=== PATIENT | female | born 1990 | race Caucasian/White ===

== ENCOUNTER 2019-06-24 19:21 | Observation (INO) | payer OTHER, SELFPAY ==
[2019-06-24] VITALS (7 sets, daily range): BP systolic 91–116; BP diastolic 54–67; PULSE 58–70; RESP 16–18; TEMP 36.6–36.8; O2SAT 97–99; BMI 21.9
--- NOTE | 2019-06-24 19:36 | ED_ITS ---
HPI - Abdominal Pain General Chief Complaint: Abdominal Pain Stated Complaint: states abd pain Time Seen by Provider: 06/24/19 19:36 Source: patient Mode of arrival: Ambulatory Limitations: no limitations History of Present Illness HPI narrative: The patient presents with intermittent RLQ pain for approximately 3 days. The pain is intermittent, described as sharp and stabbing when occurring. With this she has no nausea, vomiting, or diarrhea. She has no dysuria or hematuria. She has an IUD in place, over the past 3 years. She has no vaginal symptoms. She denies fever. She does have chills. She still eats and drinks, but her appetite is decreased. She is experiencing mid back pain. She has no history of pyelonephritis. She denies headache, sore throat or URI symptoms. She has no cough or dyspnea. She has no known exposure to others with COVID-19. Related Data Home Medications Medication Instructions Recorded Confirmed No Known Home Medications 06/25/19 06/25/19 Allergies Allergy/AdvReac Type Severity Reaction Status Date / Time No Known Drug Allergies Allergy Verified 06/24/19 19:51 Review of Systems Review of Systems ROS Unobtainable: All systems reviewed & are unremarkable except as noted in HPI and below Constitutional Constitutional: Reports chills, Denies fever(s), Denies headache(s), Denies lethargy and Denies weakness Eyes Eyes: Denies change in vision ENT Ears, Nose, Mouth, and Throat: Denies dysphagia, Denies dizziness, Denies headache(s) and Denies sore throat Cardiovascular Cardiovascular: Denies chest pain, Denies palpitations and Denies dyspnea Respiratory Respiratory: Denies cough and Denies dyspnea Gastrointestinal Gastrointestinal: Reports as per HPI and Denies dysphagia Genitourinary Comments: No vaginal complaints Musculoskeletal Comments: Back pain is noted in HPI. Integumentary/Breasts Skin/Breast: Denies erythema and Denies rash Neurologic Neurologic: Denies dizziness, Denies headache(s) and Denies weakness Endocrine Endocrine: Denies palpitations Patient History Social History household members: spouse and children Smoking Status: Never smoker alcohol intake: current alcohol intake frequency: other (Light alcohol use) Substance Use Type: does not use Exam Initial Vital Signs Initial Vital Signs: Vital Signs Temperature 97.9 F 06/24/19 19:22 Pulse Rate 70 06/24/19 19:22 Respiratory Rate 18 06/24/19 19:22 Blood Pressure 105/56 L 06/24/19 19:22 Pulse Oximetry 97 06/24/19 19:22 Const General: cooperative and well developed Nutritional Appearance: well nourished [facility] Head: normocephalic and atraumatic Mouth: oral mucosae normal Throat: posterior oropharynx normal Eyes General: appearance normal, both eyes and all related structures Conjunctivae: conjunctivae normal Pupils: PERRL EOM: EOM intact bilaterally Resp Effort & Inspection: normal respiratory effort and able to speak in complete sentences Auscultation: clear to auscultation bilaterally, no rales, no rhonchi and no wheezes Cardio Rate: regular rate Rhythm: regular rhythm Heart Sounds: S1 normal, S2 normal, no click, no gallops, no murmurs and no rubs Pulses: normal peripheral pulses GI Inspection: non-distended Palpation: soft and no hepatosplenomegaly Auscultation: normal bowel sounds Other: Right lower quadrant tenderness with guarding but and rebound. Equivocal Rovsing's. Negative heel tap. Back/Spine/Pelvis Back: No CVA tenderness Skin General: no rashes or lesions noted Neuro General: alert, oriented x3 and no focal motor deficits Speech: speech normal Extrem General: full ROM, no clubbing, cyanosis or edema, no pedal edema and no calf tenderness Psych Appearance: well kempt Mental Status: mental status grossly normal Attitude: cooperative Thought Content: normal Course Course Course Narrative: Clinical findings, labs and radiology findings were discussed with surgery, Dr. Jha. I started on a 1st dose of Zosyn. She is admitted to Dr. Jha for ongoing antibiotic treatment. She will be revaluated for potential surgery in the morning. Orders Ordered: ED Orders 06/24/19 17:48 Urine Culture Stat Urine Microscopic Stat 06/24/19 19:50 Complete Blood Count AUTO DIFF Stat Comprehensive Metabolic Panel Stat Lipase Stat 06/24/19 20:02 US pelvic complete Stat 06/24/19 21:47 CT abdomen pelvis w con Stat Lactated Ringer's (Lactated Ringers) 1,000 mls @ 200 mls/hr IV BOLUS ONE Stop: 06/25/19 02:53 Last Infusion: 06/24/19 23:40 Dose: 200 mls/hr Documented by: Admin: 06/24/19 22:09 Dose: 200 mls/hr Documented by: MORENITA Piperacillin/Tazobactam/Dextrose (Zosyn) 3.375 gm in 50 mls @ 100 mls/hr IV Q6H MARSHAL Last Admin: 06/25/19 01:41 Dose: Not Given Documented by: HBUSH Lactated Ringer's (Lactated Ringers) 1,000 mls @ 150 mls/hr IV CONT MARSHAL Morphine Sulfate (Morphine) 2 mg IV Q4HR PRN PRN Reason: Pain, Moderate (4-6) Discontinued Medications Sodium Chloride (Normal Saline 0.9%) 1,000 mls @ 1,000 mls/hr IV BOLUS ONE Stop: 06/24/19 20:45 Last Infusion: 06/24/19 21:18 Dose: 0 mls/hr Documented by: Admin: 06/24/19 20:14 Dose: 1,000 mls/hr Documented by: MORENITA Piperacillin/Tazobactam/Dextrose (Zosyn) 3.375 gm in 50 mls @ 100 mls/hr IV NOW ONE Stop: 06/24/19 23:18 Last Infusion: 06/24/19 23:31 Dose: 0 mls/hr Documented by: Admin: 06/24/19 22:58 Dose: 100 mls/hr Documented by: MORENITA Ketorolac Tromethamine (Toradol) 30 mg IV NOW ONE Stop: 06/24/19 20:03 Last Admin: 06/24/19 20:14 Dose: 30 mg Documented by: MORENITA Vital Signs Vital signs: Vital Signs - 8 hr 06/24/19 19:22 06/24/19 21:00 06/24/19 21:30 Temperature 97.9 F 98.2 F Pulse Rate 70 65 60 Respiratory Rate 18 18 18 Blood Pressure 105/56 L Blood Pressure [Right Arm] 116/56 L 110/65 Pulse Oximetry 97 98 98 06/24/19 22:47 Temperature Pulse Rate 58 L Respiratory Rate 16 Blood Pressure Blood Pressure [Right Arm] 91/54 L Pulse Oximetry 98 MDM - Abdominal Pain Lab Data Result diagrams: 06/24/19 19:50 06/24/19 19:50 Labs: Lab Results 06/24/19 06/24/19 06/24/19 Range/Units 17:48 19:50 19:50 WBC 16.7 H (4.5-11.0) X10^3/uL RBC 4.33 (4.0-5.2) X10^6/uL Hgb 13.0 (12.0-16.0) g/dL Hct 39.0 (36-46) % MCV 90.0 (80-100) fL MCH 30.0 (26-34) PG MCHC 33.3 (30-36) % RDW 13.0 (11.6-14.8) % Plt Count 222 (150-400) X10^3/uL Neut % (Auto) 79.1 H (50-75) % Lymph % (Auto) 12.2 L (25-40) % [place] % (Auto) 7.6 (3-14) % Eos % (Auto) 0.8 L (2-4) % Baso % (Auto) 0.3 (0-2) % Neut # (Auto) 22445 H (4995-0667) /uL Lymph # (Auto) 2000 (5252-8266) /uL [place] # (Auto) 1300 H (0-900) /uL Eos # (Auto) 100 (0-450) /uL Baso # (Auto) 100 (0-100) /uL Sodium 138 (137-145) mmol/L Potassium 3.4 (3.4-5.1) mmol/L Chloride 104 (98-107) mmol/L Carbon Dioxide 28 (22-32) mmol/L BUN 14 (7-17) mg/dL Creatinine 0.67 (0.52-1.04) mg/dL Estimated GFR > 60.0 (>60) mL/min BUN/Creatinine Ratio 20.9 (6-22) Glucose 143 H (70-100) mg/dL Calcium 9.2 (8.4-10.2) mg/dL Total Bilirubin 0.5 (0.2-1.3) mg/dL AST 30 (14-36) IU/L ALT 18 (<35) IU/L Alkaline Phosphatase 60 (38-126) U/L Total Protein 7.6 (6.3-8.2) g/dL Albumin 4.4 (3.5-5.0) g/dL Globulin 3.2 (1.7-4.1) g/dL Albumin/Globulin Ratio 1.4 (1.0-2.8) Lipase 76 (23-300) U/L Urine RBC 5-10/hpf H (0-5/HPF) Urine WBC 5-10/hpf H (0-5/HPF) Ur Squamous Epith Cells 1-5 /hpf (0-5/HPF) Ur Transition Epith Cell 1-5/hpf (0-5/HPF) Amorphous Sediment 1+ Urine Bacteria Many (>30) H (None) Ur Culture Indicated? Specimen cultured Point of care testing: Point of Care Testing Test Results Negative Urine Dip Bedside Urine Glucose Negative Bedside Urine Bilirubin - Negative Bedside Urine Ketone +/- 5 Urine Specific Platinum 1.020 Bedside Urine Occult Blood +/- Bedside Urine pH 6.5 Bedside Urine Protein +/- 15 Bedside Urine Urobilinogen +/- 1mg Bedside Urine Nitrite - Negative Bedside Urine Leukocytes +/- 15 Esterase Imaging Data Ultrasound-pelvis: Radiologist's Impression: 4 Diagnostics DATE TYPE STATUS AUTHOR Hx 06/24/19 21:47 06/24/19 20:02 Shailesh Richardson Morgan E 28, F0 1990 ADM BELINDA, AC 209 -1 170.18cm 63.503kg BMI: 21.9kg/m? Search Chart No Data to Display ONSET 06/24/19 23:57 Ricardo Ernandez 28 F 1990 [place] [address] Ultrasound Report Signed Patient: Ricardo Ernandez EMR#: [id number] : 1990Acct:[id number] Age/Sex: te of Service: 06/24/19 Loc: ED Accession Number: [id number] Procedure: US pelvic complete Ordering Provider: Luis Enrique Aponte MD PROCEDURE: US PELVIC COMPLETE INDICATIONS: RIGHT LOWER QUADRANT PAIN; APPENCICITIS VS TORSION TECHNIQUE: Real-time scanning was performed of the pelvic organs, with image documentation. Additional endovaginal scanning was necessary due to incomplete visualization of the adnexal and endometrial structures by transabdominal scanning. COMPARISON: None. FINDINGS: Transabdominal scanning: Limited scanning through the kidneys shows no hydronephrosis. No pathologic free abdominal or pelvic fluid. Endovaginal scanning: Uterus: Uterus is normal in size at 8.3 x 3.9 x 6.1 cm. The endometrium is quite thin. An IUD is in place. Ovaries: Right ovary measures 3.6 x 2.1 x 1.7 cm. Left ovary measures 3.4 x 2.1 x 2.1 cm. Ovaries are normal in appearance. There is normal vascularity involving both ovaries. There is a 10 cm noncompressible tubular structure in the right lower quadrant, which measures 1.3 cm in transverse dimension. There is a probable appendicolith. There is significant pain on examination of the structure. IMPRESSION: Findings are highly suspicious for acute appendicitis. No evidence of ovarian torsion. Comment: Preliminary findings were reported by the net web developer to the referring provider at the time of study completion. Dictated by: Shailesh Richardson M.D. on 06/24/2019 at 21:21 Approved by: Shailesh Richardson M.D. on 06/24/2019 at 21:30 Abdomen/pelvis CT:: Radiologist's Impression: Findings consistent with acute appendicitis. Discharge Plan Departure Patient Disposition: Admitted as Observation Clinical Impression: Acute appendicitis Qualifiers: Acute appendicitis type: with localized peritonitis Appendicitis gangrene presence: unspecified whether gangrene present Appendicitis perforation presence: without perforation Appendicitis abscess presence: without abscess Qualified Code(s): K35.30 - Acute appendicitis with localized peritonitis, without perforation or gangrene Discharge Date/Time: 06/24/19 23:41 Admit Date/Time: 06/24/19 22:55 Admit Provider: Dylan Jha
--- NOTE | 2019-06-24 20:02 | DI.US.S_ITS ---
PROCEDURE: US PELVIC COMPLETE INDICATIONS: RIGHT LOWER QUADRANT PAIN; APPENCICITIS VS TORSION TECHNIQUE: Real-time scanning was performed of the pelvic organs, with image documentation. Additional endovaginal scanning was necessary due to incomplete visualization of the adnexal and endometrial structures by transabdominal scanning. COMPARISON: None. FINDINGS: Transabdominal scanning: Limited scanning through the kidneys shows no hydronephrosis. No pathologic free abdominal or pelvic fluid. Endovaginal scanning: Uterus: Uterus is normal in size at 8.3 x 3.9 x 6.1 cm. The endometrium is quite thin. An IUD is in place. Ovaries: Right ovary measures 3.6 x 2.1 x 1.7 cm. Left ovary measures 3.4 x 2.1 x 2.1 cm. Ovaries are normal in appearance. There is normal vascularity involving both ovaries. There is a 10 cm noncompressible tubular structure in the right lower quadrant, which measures 1.3 cm in transverse dimension. There is a probable appendicolith. There is significant pain on examination of the structure. IMPRESSION: Findings are highly suspicious for acute appendicitis. No evidence of ovarian torsion. Comment: Preliminary findings were reported by the men's furnishings salesperson to the referring provider at the time of study completion. Dictated by: Shailesh Richardson M.D. on 06/24/2019 at 21:21 Approved by: Shailesh Richardson M.D. on 06/24/2019 at 21:30
[2019-06-24 20:06] LABS: Add Manual Diff / Slide Review NO; Basophils Absolute Auto 100 /uL (0-100); Basophils Percent Auto 0.3 % (0-2); Eosinophils Absolute Auto 100 /uL (0-450); Eosinophils Percent Auto 0.8 % (2-4); Lymphocytes Absolute Auto 2000 /uL (1100-4500); Lymphocytes Percent Auto 12.2 % (25-40); Mean Corpuscular HGB Conc 33.3 % (30-36); Monocytes Absolute Auto 1300 /uL (0-900); Monocytes Percent Auto 7.6 % (3-14); Neutrophils Absolute Auto 13200 /uL (1500-7000); Neutrophils Percent Auto 79.1 % (50-75); Platelet Count 222 X10^3/uL (150-400); Red Blood Cell Count 4.33 X10^6/uL (4.0-5.2); White Blood Cell Count 16.7 X10^3/uL (4.5-11.0)
[2019-06-24] MEDS: KETOROLAC 60 MG/2 ML VIAL 30 MG IV (20:14)
[2019-06-24] MEDS: SODIUM CHLORIDE 0.9% 1,000 ML 1000 ML IV (20:14)
[2019-06-24 20:17] LABS: Amorphous Sediment Urine 1+; Bacteria Urine Many (>30); Culture Indicated Urine Specimen Cultured; RBC Urine 5-10/HPF (0-5/HPF); Squamous Epithelial Cell Urine 1-5 /HPF (0-5/HPF); Transitional Epi Cells Urine 1-5/HPF (0-5/HPF); WBC Urine 5-10/HPF (0-5/HPF)
[2019-06-24 20:22] LABS: Alanine Aminotransferase 18 IU/L (<35); Albumin 4.4 g/dL (3.5-5.0); Albumin Globulin Ratio 1.4 (1.0-2.8); Alkaline Phosphatase 60 U/L (38-126); Aspartate Aminotransferase 30 IU/L (14-36); BUN Creatinine Ratio 20.9 (6-22); Bilirubin Total 0.5 mg/dL (0.2-1.3); Blood Urea Nitrogen 14 mg/dL (7-17); Calcium 9.2 mg/dL (8.4-10.2); Carbon Dioxide 28 mmol/L (22-32); Chloride 104 mmol/L (98-107); Estimated Glomerular Filt Rate > 60.0 mL/min (>60); Globulin 3.2 g/dL (1.7-4.1); Glucose 143 mg/dL (70-100); HEMOLYSIS < 15 (0-50); Lipase 76 U/L (23-300); Potassium 3.4 mmol/L (3.4-5.1); Sodium 138 mmol/L (137-145); Total Protein 7.6 g/dL (6.3-8.2)
--- NOTE | 2019-06-24 21:47 | DI.CT.S_ITS ---
PROCEDURE: CT ABDOMEN PELVIS W CON INDICATIONS: RLQ pain. Suspect appendicitis from recent ultrasound. TECHNIQUE: After the administration of intravenous contrast, 5 mm thick sections acquired from the diaphragm to the symphysis. 5 mm coronal and sagittal reformats were acquired. For radiation dose reduction, the following was used: automated exposure control, adjustment of mA and/or kV according to patient size. COMPARISON: None. FINDINGS: Image quality: Excellent. ABDOMEN: Lung bases: Bibasilar dependent atelectasis are seen posteriorly. Heart size is normal. Solid organs: Liver is normal in size and enhancement. Gallbladder is within normal limits. Biliary system is non dilated. Pancreas enhances normally. Spleen is normal in size and enhancement. No adrenal nodules. Kidneys demonstrate normal size and enhancement, without hydronephrosis. Peritoneum and bowel: There is fecal stasis in the colon. Significantly enlarged appendix with periappendiceal fat stranding and appendiceal wall thickening is seen. Small to moderate amount of free fluid in lower abdomen and pelvis is seen. No discrete drainable abscess collection is identified. No peritoneal free air. Nodes and vessels: No retroperitoneal or mesenteric adenopathy by size criteria. Aorta and inferior vena cava are normal in size. Miscellaneous: No ventral hernias. PELVIS: Genitourinary: Bladder wall thickness is normal. Miscellaneous: No inguinal hernias or adenopathy. Intrauterine device is noted in place. Possible collapsing left ovarian follicle is seen. Bones: No suspicious bony lesions. No vertebral body compression fractures. IMPRESSION: 1. Findings consistent with acute appendicitis. No discrete drainable abscess collection is seen. Small to moderate amount of free fluid is seen in the lower abdomen and pelvis. No peritoneal free air. Mild constipation. 2. Intrauterine device in place. Possible collapsing left ovarian follicle. Dictated by: Steve Reagan M.D. on 06/25/2019 at 8:25 Approved by: Steve Reagan M.D. on 06/25/2019 at 8:28
[2019-06-24] MEDS: LACTATED RINGERS 1,000 ML 200 ML IV (22:09)
[2019-06-24] MEDS: PIPERACILLIN-TAZO 3.375 GM/50 ML FROZ.PIGGY IV (22:58)
[2019-06-25] VITALS (20 sets, daily range): BP systolic 85–105; BP diastolic 48–61; PULSE 49–91; RESP 11–23; TEMP 34.7–36.8; O2SAT 89–100
--- NOTE | 2019-06-25 | PATH_ITS ---
[facility] Accession Number: [id number] . 01 Material submitted: . appendix - APPENDIX . 01 Clinical history: . STATES ABD PAIN . 02 Diagnosis: Appendix, Appendectomy: Acute appendicitis. No evidence of neoplasm. [facility] 06/27/2019 1209 Local . 02 Electronically signed: . Gaudencio Malin MD, PhD, Pathologist NPI- [id number] . 01 Gross description: . Received in formalin, labeled appendix, is an intact appendix (length-5.8 cm, diameter-0.8 cm) with guerrero-pink smooth shiny serosa and an open resection margin. The lumen contains clear colorless fluid. The wall is up to 0.3 cm thick. No nodules, masses or lesions are identified. The resection margin is inked blue. Serially sectioned and entirely submitted in cassettes A1-A2 with the resection margin en face in A1, and the tip is bivalved and entirely submitted in cassettes A3-A4. ([id number]) /MRV 06/26/2019 1146 Local . 02 Pathologist provided ICD-10: K35.80 . 02 CPT . 768819 Performed at: 01 [facility] [address], [place], [place] [id number] MD Poncho Mckenzie MD Phone: [phone] Performed at: 02 [facility] [address] [place], [place] [id number] MD Kay Newton MD Phone: [phone]
--- NOTE | 2019-06-25 00:14 | PC.ADMIT ---
[id number] [facility] Admission Note: The patient,Ricardo Ernandez,28 y/o, was given written information regarding hospital policies, unit procedures and contact persons. Patient's smoking status: Never smoker. Vital Signs - 8 hr 06/24/19 19:22 06/24/19 21:00 06/24/19 21:30 Temperature 97.9 F 98.2 F Pulse Rate 70 65 60 Respiratory Rate 18 18 18 Blood Pressure 105/56 L Blood Pressure [Right Arm] 116/56 L 110/65 Pulse Oximetry 97 98 98 06/24/19 22:47 06/24/19 23:00 06/24/19 23:30 Temperature Pulse Rate 58 L 62 59 L Respiratory Rate 16 16 16 Blood Pressure Blood Pressure [Right Arm] 91/54 L 97/61 99/58 L Pulse Oximetry 98 98 98 06/24/19 23:57 Temperature 98.2 F Pulse Rate 63 Respiratory Rate 16 Blood Pressure 99/67 Blood Pressure [Right Arm] Pulse Oximetry 99 Patient arrived via stretcher. Able to ambulate to bed. A/O X 3 in NAD. Independent in room. IVF infusing LR @ 150 mL/hour per orders. IV Zosyn dose completed in ED - next dose in AM. NPO maintained - last reported meal at 1730 06/24/19. Denies current pain at rest. Denies N/V. Oriented to room, plan of care and call light.
[2019-06-25] MEDS: LACTATED RINGERS 1,000 ML 150 ML IV (03:00)
[2019-06-25] MEDS: MORPHINE 2 MG/ML INJ IV (03:01)
[2019-06-25] MEDS: PIPERACILLIN-TAZO 3.375 GM/50 ML FROZ.PIGGY IV (06:13)
--- NOTE | 2019-06-25 07:08 | PM.HP.1 ---
History of Present Illness History of Present Illness Date Patient Seen: 06/25/19 Time Patient Seen: 07:00 Date of Onset of Symptoms: 06/22/19 Chief complaint: states abd pain Narrative: The patient is a 28-year-old woman who developed pain 3 or 4 days ago in her abdomen. She thought she had eaten something that might have been tainted. The kick pain came and went but when she tried exercise and next day became more severe and settled in the right lower quadrant. It intensified yesterday and she came into the emergency room. The pain was very sharp stabbing pain yesterday. She has had morphine through the night her pain has improved with that but is still present. She has been anorexic but has not vomited. She has been little nauseated. She is otherwise healthy. No black or bloody bowel movements or diarrhea. Patient History Family & Social History Social History: household members spouse,children Prior Living Arrangements House Safety & Behavioral: Feels Safe in Current Yes Environment Been Physically Hurt or No Threatened By a Person Suicidal Ideation Description None Suicide Plan Description No Plan Tobacco & Substance use: Smoking Status Never smoker alcohol intake current alcohol intake frequency a few times a month Substance Use Type does not use Meds Home Medications and Allergies Home Medications Medication Instructions Recorded Confirmed Type No Known Home Medications 06/25/19 06/25/19 History Allergies Allergy/AdvReac Type Severity Reaction Status Date / Time No Known Drug Allergies Allergy Verified 06/24/19 19:51 Review of Systems Review of Systems Narrative: Patient denies any visual difficulties pain arise double vision. No problems with tooth aches or swallowing. No sore throat or runny nose. No cough cold or asthma. No heart problems murmurs chest pain. No black or bloody bowel movements. No problems with kidney stones or blood in her urine. No seizures or blackouts. No problems with unusual bruising or bleeding. She has an IUD in place. Not . She had some problem absorbing folate when she was and takes supplement. Exam Vital Signs (past 8 hours): - 06/24/19 23:30 06/24/19 23:57 Temperature 98.2 F Pulse Rate 59 L 63 Respiratory Rate 16 16 Blood Pressure 99/67 Blood Pressure [Right Arm] 99/58 L Pulse Oximetry 98 99 Oxygen Delivery Method Room Air Oxygen Flow Rate 0 Narrative Exam Narrative: Thin Cooperative in no apparent distress. Eyes are nonicteric. Pupils equal round reactive to light. Ears without lesion. Nasal septum is midline. Small opening into the nose. Oral mucosa is dry no open lesions pink. Teeth are intact. There are no nodes neck supraclavicular areas. Lungs are clear to auscultation without rales or rhonchi. Equal percussion heart regular rate and rhythm without murmur gallop no bruit in the neck abdomen is flat soft. There is no tenderness in the left abdomen but in the right lower quadrant there is a sense of fullness and guarding. It is localized. Her extremities without cyanosis clubbing or edema. No obvious bony deformities noted. She is alert and oriented x3. Speech rate and content are appropriate affect is appropriate. Objective Labs Result Diagrams: 06/24/19 19:50 06/24/19 19:50 Labs: Laboratory Results - last 24 hr 06/24/19 06/24/19 06/24/19 17:48 19:50 19:50 WBC 16.7 H RBC 4.33 Hgb 13.0 Hct 39.0 MCV 90.0 MCH 30.0 MCHC 33.3 RDW 13.0 Plt Count 222 Neut % (Auto) 79.1 H Lymph % (Auto) 12.2 L [place] % (Auto) 7.6 Eos % (Auto) 0.8 L Baso % (Auto) 0.3 Neut # (Auto) 18814 H Lymph # (Auto) 2000 [place] # (Auto) 1300 H Eos # (Auto) 100 Baso # (Auto) 100 Sodium 138 Potassium 3.4 Chloride 104 Carbon Dioxide 28 BUN 14 Creatinine 0.67 Estimated GFR > 60.0 BUN/Creatinine Ratio 20.9 Glucose 143 H Calcium 9.2 Total Bilirubin 0.5 AST 30 ALT 18 Alkaline Phosphatase 60 Total Protein 7.6 Albumin 4.4 Globulin 3.2 Albumin/Globulin Ratio 1.4 Lipase 76 Urine RBC 5-10/hpf H Urine WBC 5-10/hpf H Ur Squamous Epith Cells 1-5 /hpf Ur Transition Epith Cell 1-5/hpf Amorphous Sediment 1+ Urine Bacteria Many (>30) H Ur Culture Indicated? Specimen cultured Assessment & Plan Assessment & Plan narrative: Patient is a healthy young woman with findings on physical exam laboratory and CT consistent with acute appendicitis. I discussed operation with a sandy. Will begin laparoscopically and expect to be able to complete it that way. I did mention the possibility of an open procedure. Risks of bleeding abscess formation and injury to internal organs in hernia were all discussed. Restrictions after the procedure discussed. All questions were answered. Quality VTE Deep Vein Thrombosis/Pulmonary Embolism Present on Admission: No
--- NOTE | 2019-06-25 07:18 | PM.PREOP ---
Pre-operative Note Interval Note History & Physical reviewed/Exam performed by Physician: Yes Changes to H&P: No
--- NOTE | 2019-06-25 07:52 | PC.NURSE ---
Day Shift- Pt gave Toni cullen mix, also given to OR team at bedside. . Pt left to OR via bed at 0738 in no distress. PIV, S/L'd at that time.
[2019-06-25] MEDS: CEFOTETAN 2 GM/50 ML PIGGYBACK IV (08:15)
--- NOTE | 2019-06-25 08:45 | SUR.OPER ---
Supine on padded OR bed, head on pillow, arm padded and tucked at side, legs uncrossed, safety belt at thigh, tape over blanket over lower legs .
[2019-06-25] MEDS: BUPIVACAINE 0.5% (PF) VIAL 30 ML INJ (08:54)
[2019-06-25] MEDS: LACTATED RINGERS 1,000 ML 40 ML IV ×2 (08:59→09:14)
--- NOTE | 2019-06-25 11:12 | PM.OP.1 ---
Operative Date/Time/Diagnoses Date of procedure: 06/25/19 Time of procedure: 10:49 Pre-op diagnosis: Acute appendicitis Post-op diagnosis: same Procedure & Clinicians Procedure: Laparoscopic appendectomy Same procedure as scheduled: Yes Indications: Right lower quadrant pain tenderness elevated white blood cell count and a CT consistent with acute appendicitis Surgeon: Dylan Jha Click Yes if Unassisted: Yes Anesthesia Type: General Operative Notes Findings: Acute appendicitis without perforation. Most of the inflammation was actually at the base. Closure Type: primary Specimen(s): other (Appendix) Prosthetic devices, grafts, tissues, transplants, or devices: None Estimated Blood Loss (mL): 10 Blood products transfused: none Procedure in detail: The patient was placed supine on the operating room table and underwent general endotracheal anesthesia. She was prepped and draped in the usual fashion. A Cardona was placed prior. Local anesthetic was infiltrated in the small incision made beneath the umbilicus. It was carried down under direct vision in the peritoneal cavity. The fascia was opened and 2 stay sutures of 0 Vicryl were placed in the fascia. A 12 mm port was inserted and 2 additional ports were placed. One was placed in the suprapubic region and 1 in the left lower quadrant. The cecum was readily identified as a soft pliable structure identified the appendix which was adherent to the cecum and trailing off to the lateral abdominal wall. The terminal ileum was also noted. The attachments of the appendix to the lateral abdominal wall were divided sharply in the appendix mobilized medially. The mesoappendix was divided. The artery was identified and carefully cauterized. Once cauterized there was no bleeding from it. It was quite difficult to dissect at the base of the appendix due to the amount of inflammation located in that region. It was very difficult to separate it at the base out from the cecum due to the inflammation. This was a slow tedious process. Ultimately I felt I had dissected down to the region near the base of the appendix and slid able to 0 0 PDS loop down over it and cinched it down. Unfortunately, because of the inflammation, it appeared to slice through everything but the mucosa. I was not satisfied that this would allow for secure closure. The appendix distal was divided with cautery placed in a bag and removed without difficulty through the umbilical port. I read then returned back to the base of the appendix did further dissection and decided to fire a stapler across the base of the appendix to secure it. A blue load 45 length stapler was obtained and closed across the base of the appendix and fired. It appeared to create a secure closure of the entire appendiceal opening. The right lower quadrant and pelvis were irrigated and suctioned free of fluid. There was a small amount of fluid around the liver which was also suctioned free. None of this fluid was purulent. Air was carefully evacuated through the filter any time there was a need to remove something from the abdomen to prevent air from the abdomen is skating unfiltered. The ports ultimately were removed. Stay sutures at the umbilicus were tied after placing a 2 0 PDS between them. The wounds were all irrigated and suctioned free of fluid. The wounds were all closed with interrupted 4 0 Vicryl subcuticular stitches and steristrips. Patient was awakened extubated and ultimately taken to the recovery room in good condition. Complications: none Post-operative Condition: stable Disposition: PACU
[2019-06-25] MEDS: HYDROMORPHONE 2 MG INJ IV (11:19)
--- NOTE | 2019-06-25 11:53 | SUR.PHASEI ---
Report called to Letha
--- NOTE | 2019-06-25 12:16 | PC.NURSE ---
Day Shift- Report rec'd from [facility] OPENER at 1150. Pt arrived to unit at 1210. Report given to VANESSA Villanueva to assume care.
--- NOTE | 2019-06-25 12:19 | SUR.PHASEI ---
Patient transferred to the floor with pulse ox. Report given to VANESSA Villanueva. VS stable. O2 sat 86% on RA while transferring. Deep breaths encouraged. Sats increased to low 90s on RA. 1l NC reapplied in the room. Abd dressings clean, dry, intact. IV saline locked in left AC. Call light within reach.
--- NOTE | 2019-06-25 13:38 | CM.DANOTE ---
Patient is a 28 year old female who was admitted on 06/24/19 for Abd Pain. Pt has [employer] For insurance and her PCP is not listed. EMR was reviewed. Per Surgeon, pt with acute appendicitis and to have surgical intervention today. Pt was off the floor most of the morning in surgery. Per RN, pt independent in room and tolerated procedure well but currently on 1L oxygen and will d/c home once she can be transitioned to room air. No needs at this time. Plan: SW to follow closely for pt d/c home with spouse and family this evening or tomorrow pending pt's ability to transition to room air. No SW needs at this time, please refer if indicated. MIRTHA Lizama Discharge Planning/Care Management CM Discharge Assessment Start: 06/25/19 13:37 Freq: Status: Active Protocol: Document 06/25/19 13:37 BF (Rec: 06/25/19 13:38 BF [id number]) Discharge Planning Assessment Assigned Angledozer Operator VANCE Vasquez DPOA/Assigned Designee Name informally spouse Toni Contact Information [phone] Advance Directives? No Advance Directives on File No History Provided By Patient,Medical Record Has Patient been admitted in last 30 No days? Prior Living Arrangements House Household Members spouse,children Type of transporation used prior to Drives own vehicle admit Independent with ADL's Yes Is patient alert and oriented? Yes Caregiver for Another Yes: children Comment Likely home with family Barriers to Discharge No Discharge Plan Home Transportation Arrangement Spouse can likely transport at d/c. Referrals Initiated None needed Review Status In Process Please Provide Date Initial DC 06/25/19 Assessment Was Performed Next Review Type Continued Stay Review
[2019-06-25] MEDS: LACTATED RINGERS 1,000 ML 125 ML IV (14:26)
[2019-06-25] MEDS: GABAPENTIN 300 MG CAPSULE PO (14:26)
--- NOTE | 2019-06-25 14:34 | PC.NURSE ---
Pt arrived from PACU @1215, alert oriented, Slightly hypotensive, 1L Spo2 93% IS teaching provided. 3 large bandaids to lap sites low pelvic.
[2019-06-25] MEDS: KETOROLAC 30 MG/ML VIAL IV (17:16)
[2019-06-25] MEDS: OXYCODONE/ACETAMINOPHEN 5/325 TABLET 2 TAB PO (20:25)
--- NOTE | 2019-06-26 13:35 | PM.DS.1 ---
History of Present Illness History of Present Illness Chief complaint: states abd pain Narrative: The patient is a 28-year-old woman who developed pain 3 or 4 days ago in her abdomen. She thought she had eaten something that might have been tainted. The kick pain came and went but when she tried exercise and next day became more severe and settled in the right lower quadrant. It intensified yesterday and she came into the emergency room. The pain was very sharp stabbing pain yesterday. She has had morphine through the night her pain has improved with that but is still present. She has been anorexic but has not vomited. She has been little nauseated. She is otherwise healthy. No black or bloody bowel movements or diarrhea. Discharge Providers Provider Date of admission: 06/24/19 22:55 Discharge Date: 06/25/19 Consults: 06/25/19 12:30 Consult to Discharge Planning Routine Comment: Discharge provider: Dylan Jha MD Summary Hospital Course Discharge Diagnosis: Acute appendicitis without perforation or peritonitis Hospital Course: Patient underwent a laparoscopic appendectomy. Postoperatively she was discharged once tolerating liquids to follow up in the office Status at Discharge Cognitive/behavioral status at discharge: oriented Functional status at discharge: independent ambulation Overall status at discharge: patient is progressing back to baseline Exam Vital Signs (past 8 hours): Oxygen Delivery Method Nasal Cannula Oxygen Flow Rate 0 Objective Labs Result Diagrams: 06/24/19 19:50 06/24/19 19:50 Discharge Plan Discharge Plan Patient Disposition: Home Discharge orders & Medications Prescriptions: New oxycodone-acetaminophen [Percocet] 5-325 mg tablet See Rx Instructions .ROUTE .COMPLEX PRN (Reason: pain) Qty: 14 RF: 0 Follow up/Referrals: Dylan Jha MD [Physician] - 07/02/19 11:00 am (If you need to reach a doctor please call our office. If we are not open listen to the entire message and you will be connected with the page dinkey motor operator at the end of the message. They will call the doctor on-call) Diet/Activity/Treatments Diet: Diet as Tolerated Activity: Do not lift over 10 lb or strain for the next [address] into her pain-free off medication. You may walk. Skin/Wound/Dressing Care Report to your healthcare provider any signs of infection, such as:: chills, fever, night sweats, increased pain, unusual drainage and unusual redness Dressing: Removed Band-Aids in 2 days and shower. Leave the tape under the Band-Aids fall off on its own. Visit Report/Discharge Packet Instructions: DI for an Appendectomy, DI for Laparoscopy, [facility]: Wound Care Discharge Data Attending Provider: Dylan Jha Admit Date/Time: 06/24/19 22:55 Discharges patient from system. Discharge Date/Time: 06/25/19 20:47 Quality VTE Deep Vein Thrombosis/Pulmonary Embolism Present on Admission: No
== END 2019-06-25 20:47 | disposition home or self-care (01) ==
LOC: ED 19:36 → AC 22:56
PROVIDERS: Admitting Provider Specialist; Emergency Provider Emergency Medicine; Visit Provider Specialist
PROC: 0DTJ4ZZ Resection of Appendix, Percutaneous Endoscopic Approach (ICD-10-PCS; CPT 44970; principal; 2019-06-25 07:45)
DX: K35.80 Unspecified acute appendicitis (principal); R10.31 Right lower quadrant pain
CPT/HCPCS: 44970; 36415; 74177; 76830; 76856; 80053; 81003; 81015; 81025; 83690; 85025; 87086; 96361; 96365; 96375; 96376; 99220; 99285; G0378; J1100; J1170; J1885; J2250; J2270; J2405; J2543; J2704; J3010

== ENCOUNTER → 2019-07-03 13:43 | Outpatient (CLI) | payer OTHER, SELFPAY ==
[2019-06-25 11:31] VITALS: BMI 21.9
--- NOTE | 2019-07-03 13:47 | DI.RAD.S_ITS ---
PROCEDURE: XR ACUTE ABDOMEN SERIES INDICATIONS: left lower abdominal pain 1 week post appendectomy TECHNIQUE: One view chest and two views of the abdomen were acquired. COMPARISON: None. FINDINGS: Surgical changes and devices: None. Chest: Lungs are clear. Heart size is normal. No pleural effusions. No pneumoperitoneum. Abdomen: Bowel gas pattern is normal. No suspicious calcifications. Visualized solid organ contours appear normal. Intrauterine device projects over the mid pelvis. Bones: No suspicious bony lesions. IMPRESSION: No acute disease process identified by plain film radiograph. Dictated by: Emely Velez MD, PhD on 07/03/2019 at 14:04 Approved by: Emely Velez MD, PhD on 07/03/2019 at 14:07
[2019-07-03 14:04] LABS: Add Manual Diff / Slide Review NO; Basophils Absolute Auto 0 /uL (0-100); Basophils Percent Auto 0.3 % (0-2); Eosinophils Absolute Auto 300 /uL (0-450); Eosinophils Percent Auto 3.1 % (2-4); Hematocrit 41.1 % (36-46); Hemoglobin 13.6 g/dL (12.0-16.0); Lymphocytes Absolute Auto 2100 /uL (1100-4500); Lymphocytes Percent Auto 18.7 % (25-40); Mean Corpuscular Hemoglobin 29.8 PG (26-34); Mean Corpuscular Volume 90.3 fL (80-100); Monocytes Absolute Auto 600 /uL (0-900); Monocytes Percent Auto 5.2 % (3-14); Neutrophils Absolute Auto 8100 /uL (1500-7000); Neutrophils Percent Auto 72.7 % (50-75); Platelet Count 267 X10^3/uL (150-400); Red Blood Cell Count 4.55 X10^6/uL (4.0-5.2); Red Cell Distribution Width 12.7 % (11.6-14.8); White Blood Cell Count 11.2 X10^3/uL (4.5-11.0)
== END ==
PROVIDERS: Referring Provider Specialist; Visit Provider Specialist
DX: Z09 Encounter for follow-up examination after completed treatment for conditions other than malignant neoplasm (principal); R10.32 Left lower quadrant pain
CPT/HCPCS: 36415; 74022; 85025

== ENCOUNTER → 2019-10-16 10:05 | Outpatient (CLI) | payer OTHER, SELFPAY ==
[2019-06-25 11:31] VITALS: BMI 21.9
[2019-10-16 14:25] LABS: Urine N gonorrhoeae NOT DETECTED
[2019-10-16 14:30] LABS: Urine Chlamydia NOT DETECTED
== END ==
PROVIDERS: Visit Provider Obstetrics & Gynecology
DX: Z11.3 Encounter for screening for infections with a predominantly sexual mode of transmission (principal)
CPT/HCPCS: 87491; 87591

== ENCOUNTER → 2019-10-16 11:00 | Oncology outpatient (ONC) | payer OTHER, SELFPAY ==
[2019-06-25 11:31] VITALS: BMI 21.9
[2019-10-10 11:26] VITALS: BP 95/50; PULSE 56; RESP 20; TEMP 37; O2SAT 100
--- NOTE | 2019-10-10 11:32 | PC.NURSE ---
PATIENT STATES SHE FEELS DEHYDRATED. STATES HAS HAS NEARLY CONSTANT NAUSEA WITH SOME EMESIS, BUT MOSTLY NAUSEA AND FOOD/FLUID AVERSION. 22G IV STARTED TO RIGHT HAND. VSS.
[2019-10-10] MEDS: MULTIVITAMIN 10 ML in LACTATED RINGERS 1,000 ML 999 ML IV (11:39)
[2019-10-10] MEDS: ONDANSETRON 4 MG/2 ML INJ IV (11:40)
--- NOTE | 2019-10-10 13:00 | PC.NURSE ---
IV infusion complete. Pt tolerated well, states was feeling slightly cool during IV fluid administration. Warm blankets were given prior. pt up to void X1 after infusion complete. Had 1 juice box of apple juice and 2 cracker packets. pt left unit up ad jing at 1301 in no distress. Pt drove herself to the hospital.
[2019-10-16] MEDS: ONDANSETRON 4 MG/2 ML INJ IV (11:36)
[2019-10-16] MEDS: MULTIVITAMIN 10 ML in LACTATED RINGERS 1,000 ML 1010 ML IV (11:36)
== END ==
PROVIDERS: Referring Provider Obstetrics & Gynecology; Visit Provider Obstetrics & Gynecology
DX: O21.0 Mild hyperemesis gravidarum (principal); Z11.3 Encounter for screening for infections with a predominantly sexual mode of transmission
CPT/HCPCS: 87491; 87591; 96361; 96365; 96366; 96374; J2405

== ENCOUNTER → 2019-11-13 14:30 | Outpatient (CLI) | payer OTHER, SELFPAY ==
[2019-06-25 11:31] VITALS: BMI 21.9
[2019-11-13 15:17] LABS: Add Manual Diff / Slide Review NO; Basophils Absolute Auto 0 /uL (0-100); Basophils Percent Auto 0.3 % (0-2); Eosinophils Absolute Auto 100 /uL (0-450); Eosinophils Percent Auto 1.3 % (2-4); Hematocrit 35.5 % (36-46); Hemoglobin 12.5 g/dL (12.0-16.0); Lymphocytes Absolute Auto 1900 /uL (1100-4500); Lymphocytes Percent Auto 23.2 % (25-40); Mean Corpuscular HGB Conc 35.1 % (30-36); Mean Corpuscular Hemoglobin 31.2 PG (26-34); Mean Corpuscular Volume 88.6 fL (80-100); Monocytes Absolute Auto 400 /uL (0-900); Monocytes Percent Auto 4.9 % (3-14); Neutrophils Absolute Auto 5800 /uL (1500-7000); Neutrophils Percent Auto 70.3 % (50-75); Platelet Count 192 X10^3/uL (150-400); Red Cell Distribution Width 12.7 % (11.6-14.8); White Blood Cell Count 8.2 X10^3/uL (4.5-11.0)
[2019-11-13 16:09] LABS: Appearance Urine UA CLEAR; Bilirubin Urine UA NEGATIVE (NEGATIVE); Color Urine UA YELLOW; Glucose Urine UA NEGATIVE (Negative); Ketones Urine UA 1+ (NEGATIVE); Leukocyte Esterase Urine UA NEGATIVE (NEGATIVE); Nitrite Urine UA NEGATIVE (Negative); Occult Blood Urine UA 3+ (Negative); Protein Urine UA NEGATIVE (Negative); Urobilinogen Urine UA 0.2 E.U./dL (0.2)
[2019-11-13 16:28] LABS: RBC Urine 1-5/HPF (0-5/HPF); Squamous Epithelial Cell Urine 5-10 /HPF (0-5/HPF); WBC Urine 0-1/HPF (0-5/HPF)
[2019-11-13 16:29] LABS: Bacteria Urine Many (>30); Hepatitis B Surface Antigen NEGATIVE s/c (NEGATIVE); Mucus Urine 1+ (Negative)
[2019-11-13 16:46] LABS: HIV 1 & 2 Ab/Ag 4th Gen Combo NEGATIVE (NEGATIVE); Hep C Virus Ab w/Reflex Quant NEGATIVE s/c (NEGATIVE)
[2019-11-13 18:32] LABS: Miscellaneous to LabCorp KIT TEST
[2019-11-14 04:39] LABS: RPR Screen Non Reactive (Non Reactive)
[2019-11-14 07:40] LABS: Varicella IgG Antibody 1287 index (Immune >165)
== END ==
PROVIDERS: Referring Provider Obstetrics & Gynecology; Visit Provider Obstetrics & Gynecology
DX: Z34.91 Encounter for supervision of normal pregnancy, unspecified, first trimester (principal); Z34.81 Encounter for supervision of other normal pregnancy, first trimester; Z36.0 Encounter for antenatal screening for chromosomal anomalies; Z3A.12 12 weeks gestation of pregnancy
CPT/HCPCS: 36415; 80055; 81003; 81015; 86787; 86803; 86850; 86900; 86901; 87086; 87389

== ENCOUNTER → 2019-12-16 14:37 | Outpatient (CLI) | payer OTHER, SELFPAY ==
[2019-12-09 15:22] VITALS: BMI 21.9
[2019-12-19 20:41] LABS: AFP Value 59.8 ng/mL (.); Gest Age on Col Date 16.9 weeks (.); Insulin Dep Diabetes No (.); OSBR Risk 1IN 1995 (.); Results Report (.); Test Results *Screen Negative* (.)
== END ==
PROVIDERS: PCP Obstetrics & Gynecology; Referring Provider Obstetrics & Gynecology; Visit Provider Obstetrics & Gynecology
DX: Z34.82 Encounter for supervision of other normal pregnancy, second trimester (principal)
CPT/HCPCS: 36415; 82105

== ENCOUNTER → 2020-01-07 12:14 | Outpatient (CLI) | payer OTHER, SELFPAY ==
[2019-12-09 15:22] VITALS: BMI 21.9
--- NOTE | 2020-01-07 12:15 | DI.US.S_ITS ---
PROCEDURE: US OB >= 14 WEEKS FETUS INDICATIONS: Anatomy scan OUTSIDE/PRIOR DATING DATA: Last menstrual period (LMP): 08/20/19 . LMP-based estimated date of delivery (JOSEFINA): 05/26/20 . First dating scan (date and location): 12/09/19 . Estimated date of delivery (JOSEFINA) from first dating scan: 05/23/20 . TECHNIQUE: Real-time scanning was performed of the fetus, with image documentation and biometric measurements. Endovaginal scanning: Not performed COMPARISON: [facility], , OB >= 14 WEEKS FETUS, 12/09/2019, 15:17. [facility], , OB <= 14 WEEKS FETUS, 11/26/2019, 12:43. [facility], , OB >= 14 WEEKS FETUS, 01/06/2020, 14:24. FINDINGS: General: A single living intrauterine gestation is present. Presentation: Breech. Placenta: Placental position is anterior , without previa. Amniotic fluid index: 12.4 cm, normal range is 5-24 cm. heart rate: 123 beats per minute. Maternal cervical canal: 5.5 cm long. Normal lower limit is 2.5 cm. biometrics: Biparietal diameter: 4.8 cm, 20 weeks 4 days Head circumference: 18.5 cm, 20 weeks 6 days Abdominal circumference: 15.3 cm, 20 weeks 4 days Femur length: 3.4 cm, 20 weeks 6 days Estimated gestational age from initial scan: 20 weeks 3 days Composite gestational age from present scan: 20 weeks 5 days Estimated weight and percentile: 370 g, 60th percentile Measurement variability for biometric dating: +/- 7 days from 14 weeks to 15 weeks 6 days gestation, +/- 10 days from 16 weeks to 21 weeks 6 days gestation, +/- 2 weeks from 22 weeks to 27 weeks 6 days gestation, +/- 3 weeks for 28 weeks gestation or later. weight reference: 4500 g or EFW >90/95% is considered macrosomia or large for gestational age. EFW <10% is small for gestational age. EFW 5% or less is considered intra-uterine growth restriction. Anatomic survey: Neuro: Ventricles are non-dilated at less than 10 mm. Cisterna magna is normal at 3-11 mm. Cerebellum is normal in size and morphology. Nuchal skin fold: Normal at less than 6 mm between 14-21 weeks gestational age. Face: Nose and lips, facial profile are normal. Spine: No evidence for spina bifida. Heart: 4-chambered heart is present, with normal ventricular outflow tracts. Diaphragm: Diaphragm is intact. Stomach: Left-sided stomach is present. Kidneys: No hydronephrosis. Normal is less than 5 mm in 2nd trimester, less than 7 mm in 3rd trimester. Cord: 3-vessel cord has orthotopic insertion. Bladder: Normal in size. Extremities: All 4 extremities identified. IMPRESSION: Single living intrauterine fetus in breech presentation. Normal anatomic survey Expected interval growth Dictated by: Dhruv Mistry M.D. on 01/07/2020 at 17:02 Approved by: Dhruv Mistry M.D. on 01/07/2020 at 17:05
== END ==
PROVIDERS: PCP Obstetrics & Gynecology; Referring Provider Obstetrics & Gynecology; Visit Provider Obstetrics & Gynecology
DX: Z34.82 Encounter for supervision of other normal pregnancy, second trimester (principal); Z3A.20 20 weeks gestation of pregnancy
CPT/HCPCS: 76811

== ENCOUNTER → 2020-02-23 14:27 | Outpatient (CLI) | payer OTHER, SELFPAY ==
[2020-02-17 11:36] VITALS: BMI 21.9
[2020-02-23 16:59] LABS: Hematocrit 34.8 % (36-46); Hemoglobin 12.2 g/dL (12.0-16.0)
[2020-02-23 17:19] LABS: GTT (PREG) 1 Hour PP 50gm Dose 125 mg/dL (76-139)
== END ==
PROVIDERS: Referring Provider Obstetrics & Gynecology; Visit Provider Obstetrics & Gynecology
DX: O26.899 Other specified pregnancy related conditions, unspecified trimester (principal); Z67.91 Unspecified blood type, Rh negative; Z3A.26 26 weeks gestation of pregnancy
CPT/HCPCS: 36415; 82950; 85014; 85018; 86850

== ENCOUNTER 2020-03-02 15:18 | Outpatient (CLI) | payer OTHER, SELFPAY ==
[2020-02-17 11:36] VITALS: BMI 21.9
== END 2020-03-02 15:59 | disposition home or self-care (01) ==
LOC: OB 03-03 07:43
PROVIDERS: Referring Provider Obstetrics & Gynecology; Visit Provider Obstetrics & Gynecology
DX: Z34.82 Encounter for supervision of other normal pregnancy, second trimester (principal); Z3A.27 27 weeks gestation of pregnancy
CPT/HCPCS: 59025; G0378; G0379

== ENCOUNTER 2020-03-15 09:57 | Outpatient (CLI) | payer OTHER, SELFPAY ==
[2020-02-17 11:36] VITALS: BMI 21.9
--- NOTE | 2020-03-15 10:50 | P.TNLD_ITS ---
Visit Information Visit Information Date of evaluation: 03/15/20 Primary OB Provider: Ale Arguelles On-call OB Provider: Ale Arguelles Reason for Evaluation: Yes non-stress test non-stress test reason: other (MTHFR, Pityriasis Rosea) [facility] Medical History (Updated 11/04/19 @ 06:57 by Ale Arguelles MD) ADD (attention deficit disorder) Dehydration during (~10/10/19) HPV (human papilloma virus) infection (~02/22/15) Left wrist fracture MTHFR gene mutation Pityriasis rosea PTSD (post-traumatic stress disorder) (~2011) (spontaneous vaginal delivery) (~06/11/16) Surgical History (Updated 10/14/19 @ 16:21 by Char Avila, VANESSA) History of appendectomy (~06/2019) Hx of LASIK (~02/2015) [place] teeth extracted Family History (Updated 10/14/19 @ 16:32 by Char Avila RN) Father No known health problems Mother No known health problems MTHFR gene mutation Grandfather No problems noted. Grandmother Bladder cancer Smoker Grandfather Alzheimer's dementia Grandmother No known health problems Social History marital status: household members: spouse and children pets and animals: Yes (X 2 dogs) education level: college occupational status: employed current occupational exposures/hazards: Yes Previous occupational history: Realtor special rex needs: No Smoking Status: Never smoker second hand exposure: No alcohol intake: former substance use type: does not use Evaluation Evaluation Baseline heart rate: 125 Variability: Moderate (11-25) monitor accelerations: Present monitor decelerations: Absent Category of Tracing: Reactive Diagnosis, Plan/Disposition Plan/Disposition Plan: 29 wks gestation Reactive NST OB Disposition: home ([facility]'s reviewed)
== END 2020-03-15 10:55 | disposition home or self-care (01) ==
LOC: LABOR 10:11 → OB 03-16 09:08
PROVIDERS: Referring Provider Obstetrics & Gynecology; Visit Provider Obstetrics & Gynecology
DX: O99.283 Endocrine, nutritional and metabolic diseases complicating pregnancy, third trimester (principal); L42 Pityriasis rosea; Z3A.29 29 weeks gestation of pregnancy
CPT/HCPCS: 59025; G0378; G0379

== ENCOUNTER 2020-03-24 10:07 | Outpatient (CLI) | payer OTHER, SELFPAY ==
[2020-02-17 11:36] VITALS: BMI 21.9
== END 2020-03-24 11:09 | disposition home or self-care (01) ==
LOC: LABOR 11:03 → OB 03-25 08:46
PROVIDERS: PCP Family Medicine; Referring Provider Obstetrics & Gynecology; Visit Provider Obstetrics & Gynecology
DX: O99.283 Endocrine, nutritional and metabolic diseases complicating pregnancy, third trimester (principal); Z3A.31 31 weeks gestation of pregnancy
CPT/HCPCS: 59025; G0378; G0379

== ENCOUNTER 2020-03-31 11:39 | Outpatient (CLI) | payer OTHER, SELFPAY ==
[2020-02-17 11:36] VITALS: BMI 21.9
== END 2020-03-31 12:13 | disposition home or self-care (01) ==
LOC: LABOR 11:43 → OB 04-01 07:43
PROVIDERS: PCP Family Medicine; Referring Provider Obstetrics & Gynecology; Visit Provider Obstetrics & Gynecology
DX: O99.283 Endocrine, nutritional and metabolic diseases complicating pregnancy, third trimester (principal); Z3A.32 32 weeks gestation of pregnancy
CPT/HCPCS: 59025; G0378; G0379

== ENCOUNTER 2020-04-07 10:05 | Outpatient (CLI) | payer OTHER, SELFPAY ==
[2020-03-31 12:44] VITALS: BMI 21.9
--- NOTE | 2020-04-07 10:56 | P.TNLD_ITS ---
Visit Information Visit Information Date of evaluation: 04/07/20 On-call OB Provider: Abram Rodrigues Reason for Evaluation: Yes non-stress test Comments/Additional reasons for admission: Patient here for a nonstress test. Category 1 tracing. Thirty-three week gestational age . NST because of early history of viral infection. [facility] Medical History (Updated 11/04/19 @ 06:57 by Ale Arguelles MD) ADD (attention deficit disorder) Dehydration during (~10/10/19) HPV (human papilloma virus) infection (~02/22/15) Left wrist fracture MTHFR gene mutation Pityriasis rosea PTSD (post-traumatic stress disorder) (~2011) (spontaneous vaginal delivery) (~06/11/16) Surgical History (Updated 10/14/19 @ 16:21 by Char Avila RN) History of appendectomy (~06/2019) Hx of LASIK (~02/2015) [place] teeth extracted Family History (Updated 10/14/19 @ 16:32 by Char Avila RN) Father No known health problems Mother No known health problems MTHFR gene mutation Grandfather No problems noted. 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
== END 2020-04-07 11:00 | disposition home or self-care (01) ==
LOC: LABOR 10:25 → OB 04-08 11:53
PROVIDERS: PCP Family Medicine; Referring Provider Obstetrics & Gynecology; Visit Provider Obstetrics & Gynecology
DX: O26.893 Other specified pregnancy related conditions, third trimester (principal); Z86.19 Personal history of other infectious and parasitic diseases; Z3A.33 33 weeks gestation of pregnancy
CPT/HCPCS: 59025; G0378; G0379

== ENCOUNTER 2020-04-15 10:08 | Outpatient (CLI) | payer OTHER, SELFPAY ==
[2020-03-31 12:44] VITALS: BMI 21.9
--- NOTE | 2020-04-15 11:21 | PM.OBTRLD ---
Visit Information Visit Information Date of evaluation: 04/15/20 Primary OB Provider: Ale Arguelles On-call OB Provider: Isabel Solorzano Reason for Evaluation: Yes non-stress test non-stress test reason: other (MTHFR, Pityriasis Rosea) [facility] Medical History (Updated 04/15/20 @ 11:22 by Isabel Solorzano DO) ADD (attention deficit disorder) Dehydration during (~10/10/19) HPV (human papilloma virus) infection (~02/22/15) Left wrist fracture MTHFR gene mutation Pityriasis rosea PTSD (post-traumatic stress disorder) (~2011) (spontaneous vaginal delivery) (~06/11/16) Surgical History (Updated 10/14/19 @ 16:21 by Char Avila RN) History of appendectomy (~06/2019) Hx of LASIK (~02/2015) [place] teeth extracted Family History (Updated 10/14/19 @ 16:32 by Char Avila RN) Father No known health problems Mother No known health problems MTHFR gene mutation Grandfather No problems noted. 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 Reactive NST. Couple contractions noted on monitor which patient did not feel. Follow-up as scheduled with Dr. Arguelles. OB Disposition: home
== END 2020-04-15 11:25 | disposition home or self-care (01) ==
LOC: OB 04-16 12:31
PROVIDERS: PCP Family Medicine; Referring Provider Obstetrics & Gynecology; Visit Provider Obstetrics & Gynecology
DX: O99.283 Endocrine, nutritional and metabolic diseases complicating pregnancy, third trimester (principal); L42 Pityriasis rosea; Z3A.34 34 weeks gestation of pregnancy
CPT/HCPCS: 59025; G0378; G0379

== ENCOUNTER → 2020-04-28 11:06 | Outpatient (CLI) | payer OTHER, SELFPAY ==
[2020-03-31 12:44] VITALS: BMI 21.9
[2020-04-29 09:36] LABS: Strep Grp B PCR NEG for Grp B Strep
== END ==
PROVIDERS: PCP Family Medicine; Visit Provider Obstetrics & Gynecology
DX: Z34.83 Encounter for supervision of other normal pregnancy, third trimester (principal); Z3A.36 36 weeks gestation of pregnancy
CPT/HCPCS: 87653

== ENCOUNTER 2020-04-28 11:43 | Outpatient (CLI) | payer OTHER, SELFPAY ==
[2020-03-31 12:44] VITALS: BMI 21.9
== END 2020-04-28 12:10 | disposition home or self-care (01) ==
LOC: LABOR 12:01 → OB 04-29 07:04
PROVIDERS: PCP Family Medicine; Referring Provider Obstetrics & Gynecology; Visit Provider Obstetrics & Gynecology
DX: O26.893 Other specified pregnancy related conditions, third trimester (principal); L42 Pityriasis rosea; Z3A.36 36 weeks gestation of pregnancy
CPT/HCPCS: 59025; 87653; G0378; G0379

== ENCOUNTER 2020-05-05 12:37 | Outpatient (CLI) | payer OTHER, SELFPAY ==
[2020-03-31 12:44] VITALS: BMI 21.9
== END 2020-05-05 13:21 | disposition home or self-care (01) ==
LOC: OB 05-06 13:14
PROVIDERS: PCP Family Medicine; Referring Provider Obstetrics & Gynecology; Visit Provider Obstetrics & Gynecology
DX: O99.283 Endocrine, nutritional and metabolic diseases complicating pregnancy, third trimester (principal); Z3A.37 37 weeks gestation of pregnancy
CPT/HCPCS: 59025; G0378; G0379

== ENCOUNTER 2020-05-09 11:23 | Outpatient (CLI) | payer OTHER, SELFPAY ==
[2020-03-31 12:44] VITALS: BMI 21.9
--- NOTE | 2020-05-09 12:02 | PM.OBTRLD ---
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 Grandmother Bladder cancer Smoker Grandfather Alzheimer's dementia Grandmother No known health problems Social History marital status: household members: spouse and children pets and animals: Yes (X 2 dogs) education level: college occupational status: employed current occupational exposures/hazards: Yes Previous occupational history: [employer] special rex needs: No Smoking Status: Never smoker second hand exposure: No alcohol intake: former substance use type: does not use Evaluation Evaluation Baseline heart rate: 115 Variability: Moderate (11-25) monitor accelerations: Present monitor decelerations: Absent Contraction Frequency (minutes): 6 Uterine Contraction Intensity: Mild Category of Tracing: Reactive Diagnosis, Plan/Disposition Plan/Disposition Plan: Assessment: 37+4 wks gestation Reactive NST Pityriasis rosea in first trimester MTHFR mutation Plan: D/C to home F/U 4 days for ob appt and NST Induction scheduled 05/17/20
== END 2020-05-09 12:05 | disposition home or self-care (01) ==
LOC: OB 05-10 10:18
PROVIDERS: PCP Family Medicine; Referring Provider Specialist; Visit Provider Specialist
DX: O99.283 Endocrine, nutritional and metabolic diseases complicating pregnancy, third trimester (principal); L42 Pityriasis rosea; Z3A.37 37 weeks gestation of pregnancy
CPT/HCPCS: 59025; G0378; G0379

== ENCOUNTER 2020-05-13 12:54 | Outpatient (CLI) | payer OTHER, SELFPAY ==
[2020-03-31 12:44] VITALS: BMI 21.9
== END 2020-05-13 13:26 | disposition home or self-care (01) ==
LOC: LABOR 13:11 → OB 05-14 09:23
PROVIDERS: PCP Family Medicine; Referring Provider Obstetrics & Gynecology; Visit Provider Obstetrics & Gynecology
DX: O99.283 Endocrine, nutritional and metabolic diseases complicating pregnancy, third trimester (principal); E72.12 Methylenetetrahydrofolate reductase deficiency; Z3A.38 38 weeks gestation of pregnancy
CPT/HCPCS: 59025; G0378; G0379

== ENCOUNTER → 2020-05-15 13:48 | Outpatient (CLI) | payer OTHER, SELFPAY ==
[2020-03-31 12:44] VITALS: BMI 21.9
[2020-05-15 15:43] LABS: COVID19 -Nasal RAPID Negative (Negative)
== END ==
PROVIDERS: PCP Family Medicine; Visit Provider Student in an Organized Health Care Education/Training Program
DX: Z01.812 Encounter for preprocedural laboratory examination (principal); Z20.822 Contact with and (suspected) exposure to COVID-19
CPT/HCPCS: 87635

== ENCOUNTER 2020-05-17 07:17 | Inpatient (IN) | payer OTHER, SELFPAY ==
[2020-03-31 12:44] VITALS: BMI 21.9
[2020-05-17] MEDS: OXYTOCIN PREMIX 30 UNIT/500 ML PLAST..BAG IV (08:29)
[2020-05-17] MEDS: LACTATED RINGERS 1,000 ML 100 ML IV (08:29)
[2020-05-17 09:04] VITALS: BP 112/68
[2020-05-17 11:47] LABS: Add Manual Diff / Slide Review NO; Basophils Absolute Auto 100 /uL (0-100); Basophils Percent Auto 0.6 % (0-2); Eosinophils Absolute Auto 100 /uL (0-450); Eosinophils Percent Auto 0.5 % (2-4); Hematocrit 37.7 % (36-46); Hemoglobin 13.2 g/dL (12.0-16.0); Lymphocytes Absolute Auto 2100 /uL (1100-4500); Lymphocytes Percent Auto 20.5 % (25-40); Mean Corpuscular HGB Conc 34.9 % (30-36); Mean Corpuscular Hemoglobin 32.6 PG (26-34); Mean Corpuscular Volume 93.3 fL (80-100); Monocytes Absolute Auto 600 /uL (0-900); Neutrophils Absolute Auto 7400 /uL (1500-7000); Neutrophils Percent Auto 72.4 % (50-75); Platelet Count 197 X10^3/uL (150-400); Red Blood Cell Count 4.04 X10^6/uL (4.0-5.2); Red Cell Distribution Width 13.8 % (11.6-14.8); White Blood Cell Count 10.2 X10^3/uL (4.5-11.0)
--- NOTE | 2020-05-17 18:01 | PM.OBHP.1 ---
OB HPI Date/Time Date of admission: 05/17/20 Date Patient Seen: 05/17/20 Time Patient Seen: 07:30 History of Present Condition Chief complaint: INDUCTION : 2 Para: 1 Estimated Date of Delivery: 05/26/20 Estimated Gestational Age (weeks): 39 Narrative: Ricardo Ernandez is a 29 year old female 2 para 1 at estimated gestational age of 39 weeks for induction due to the MTHFR and pityriasis rosea in the 1st trimester Indications Indication for induction OB: medical complication (MTHFR, pityriasis rosea) History of Present care: good care, initiated at week # (8), number of visits (16) and pounds weight gain (34) Dating criteria: LMP confirmed by 1st trimester US Ultrasounds: normal 1st trimester US and normal mid trimester US Obstetrical complications: other (Pityriasis rosea in the 1st trimester) Medical complications: immunologic (MTHFR) Preadmission Labs Blood type: 0 (-) negative -: Antibody screen: negative, GBS status: negative, HBsAG: negative, HIV: negative and RPR/VDLR: negative -: Chlamydia screen: not detected and Gonorrhea screen: not detected -: Rubella: not immune and Varicella: immune HCT: 37.7 HCAB: negative PAP: Normal Cell-free DNA: Normal male. AFP normal Urine: Negative 1 hr GTT: 125 Prior (ies) History: 1 Evaluation Evaluation Baseline heart rate: 125 Variability: Moderate (11-25) monitor accelerations: Present monitor decelerations: Absent Status: Category l Cervical dilation (cm): 3 Cervical effacement (%): 85 station: -1 Laboratory results: Laboratory Tests 05/17/20 05/17/20 08:10 11:40 WBC 10.2 RBC 4.04 Hgb 13.2 Hct 37.7 MCV 93.3 MCH 32.6 MCHC 34.9 RDW 13.8 Plt Count 197 Neut % (Auto) 72.4 Lymph % (Auto) 20.5 L Par[place] % (Auto) 6.0 Eos % (Auto) 0.5 L Baso % (Auto) 0.6 Neut # (Auto) 7400 H Lymph # (Auto) 2100 [place] # (Auto) 600 Eos # (Auto) 100 Baso # (Auto) 100 Blood Type O Negative Antibody Screen Negative PFSH Medical History (Updated 04/28/20 @ 13:14 by Ale Arguelles MD) ADD (attention deficit disorder) Dehydration during (~10/10/19) HPV (human papilloma virus) infection (~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 Grandmother Bladder cancer Smoker Grandfather Alzheimer's dementia Grandmother No known health problems Social History marital status: household members: spouse and children pets and animals: Yes (X 2 dogs) education level: college occupational status: employed current occupational exposures/hazards: Yes Previous occupational history: Realtor special rex needs: No Smoking Status: Never smoker second hand exposure: No alcohol intake: former substance use type: does not use Meds Home Medications and Allergies Home Medications Medication Instructions Recorded Confirmed Type Methyl-Guard Plus 1 tab PO DAILY 10/02/19 05/17/20 History prenat.vits,marquis,[id number]-ypwa-iuyvm 1 tab PO DAILY 10/02/19 05/17/20 History citalopram 10 mg tablet 10 mg PO DAILY #30 tab 04/14/20 05/17/20 Rx Allergies Allergy/AdvReac Type Severity Reaction Status Date / Time No Known Drug Allergies Allergy Verified 05/13/20 13:23 Exam Vital Signs (past 8 hours): Generally: No acute distress Fundal height: 39 cm Estimated weight: 7 lb Extremities: 1+ DTRs, no edema Objective Labs Result Diagrams: 05/17/20 11:40 Labs: Laboratory Results - last 24 hr 05/17/20 05/17/20 08:10 11:40 WBC 10.2 RBC 4.04 Hgb 13.2 Hct 37.7 MCV 93.3 MCH 32.6 MCHC 34.9 RDW 13.8 Plt Count 197 Neut % (Auto) 72.4 Lymph % (Auto) 20.5 L [place] % (Auto) 6.0 Eos % (Auto) 0.5 L Baso % (Auto) 0.6 Neut # (Auto) 7400 H Lymph # (Auto) 2100 [place]mer # (Auto) 600 Eos # (Auto) 100 Baso # (Auto) 100 Blood Type O Negative Antibody Screen Negative Assessment and Plan Assessment and Plan Assessment and Plan narrative: Assessment: 29-year-old 2 para 1 at an estimated gestational age of 39 weeks for induction due to MTHFR and pityriasis rosea in the 1st trimester Plan: Pitocin per protocol 2 Epidural as needed Artificial rupture membranes when able Expected management to spontaneous vaginal delivery Time Spent with Patient Total time spent with greater than 50% in coordination of care (as documented) at patient's floor/unit and/or counseling patient:: 15-24 minutes
--- NOTE | 2020-05-17 18:07 | PM.OBPNLAB ---
Date/Time Date Patient Seen: 05/17/20 Time Patient Seen: 10:40 Pain Control Pain control: tolerating well Pelvic Exam Dilation (cm): 5 Effacement (%): 90 station: -1 Contractions Contractions on admission: none Monitor mode: External Pitocin rate (mU/min): 9 Contraction frequency (min): 3 Contraction duration (min): 1 Contraction pattern: Regular Contraction intensity: Moderate Status status: Category l Heart Rate Baseline: 130 Monitor Accelerations: Present Monitor Decelerations: Absent Monitor Variability: Moderate Assessment and Plan Assessment: induction ongoing Plan: other (Artificial rupture of membranes with copious amounts of clear amniotic fluid)
--- NOTE | 2020-05-17 18:08 | P.PCNOB_ITS ---
Events: Labor Induction and Other (Pityriasis rosea, MTHFR) Labor & Delivery Delivery date: 05/17/20 Cervical ripening method: none Induction method: per pitocin protocol Delivery augmentation: rupture of membranes Delivery monitor: external FHT and external uterine Route of delivery: Episiotomy description: None L&D Laceration Description: None Estimated blood loss (mL): 100 Anesthesia Type: Epidural Complications: None Narrative: Patient complete and pushed with 1 contraction. At 5:40 p.m., a live male delivered in the [place] presentation over an intact perineum. No nuchal cord. The remainder of the body delivered without difficulty and was placed on mom's abdomen. After the cord stopped pulsing, the cord was double clamped and cut. Cord bloods were obtained. Pitocin was given at 200 cc an hour with a bag with 30 units in 500cc. Fundus was massaged to firm. The vagina and perineum were inspected and there were no lacerations. Apgars 9 at 1 minute and 9 at 5 minutes. Epidural analgesia. . Mom and stable to recovery. [place] Baby 1: Infant gender: Male Presentation: vertex Position: Left Occiput Anterior Placenta delivery description: Spontaneous and Normal Configuration Cord Vessel Description: 3 Vessels score (1 min): 9 score (5 min): 9 Plan for aftercare: Routine care
[2020-05-17] MEDS: LANOLIN OINT 7 GM 1 APPLIC TOP (21:24)
[2020-05-17] MEDS: IBUPROFEN 600 MG TABLET PO (21:24)
[2020-05-17] MEDS: ACETAMINOPHEN 325 MG TABLET 650 MG PO (22:40)
[2020-05-18] MEDS: ACETAMINOPHEN 325 MG TABLET 650 MG PO ×3 (04:11→17:02)
[2020-05-18] MEDS: IBUPROFEN 600 MG TABLET PO ×3 (04:12→17:02)
[2020-05-18 05:39] LABS: Hematocrit 34.6 % (36-46); Hemoglobin 12.1 g/dL (12.0-16.0)
[2020-05-18] MEDS: PRENATAL VIT,CALC/IRON/FOLIC 1 TABLET 1 TAB PO (10:24)
[2020-05-18] MEDS: DOCUSATE 100 MG CAPSULE PO (10:25)
[2020-05-18] MEDS: CITALOPRAM 10 MG TABLET PO (10:25)
[2020-05-18 10:29] VITALS: BP 107/67; PULSE 58; RESP 17; TEMP 36.8
[2020-05-18 17:02] VITALS: TEMP 36.9
--- NOTE | 2020-05-19 08:08 | PM.OBDS.1 ---
Discharge Providers Provider Date of admission: 05/17/20 07:17 Discharge Date: 05/18/20 Primary care physician: Theodore Ellsworth MD Discharge provider: Ale Arguelles MD Summary Hospital Course Date Patient Seen: 05/18/20 Time Patient Seen: 09:20 Diagnoses: EGA of 39 weeks MTHFR Pityriasis rosea in first trimester Hospital Course: Patient is a 29-year-old 2 para 2 who presented on May 17, 2020 at an estimated gestational age of 39 weeks for a scheduled induction due to MTHFR and pityriasis rosea in the 1st trimester. She was started on Pitocin per protocol 2. Artificial rupture of membranes was performed in mid morning. She received an epidural for pain management. She progressed to complete dilation and pushed with 1 contraction. She had a spontaneous vaginal delivery without complication. She had no lacerations. Her course was unremarkable. She is discharged home on day # 1. Peripartum Data Delivery Method: Natural Vaginal Laceration Description: None Episiotomy description: None Procedures: Pitocin induction of labor Artificial rupture of membranes Epidural analgesia Spontaneous vaginal delivery complications: none 1: Gender: Male Disposition of : home Status at Discharge Cognitive/behavioral status at discharge: oriented Functional status at discharge: independent ambulation Overall status at discharge: patient is progressing back to baseline Time Spent with Patient Time attestation: Total time spent providing and/or coordinating discharge services: Time spent: Less than 30 minutes Objective Labs Result Diagrams: 05/18/20 05:30 Exam Vital Signs (past 8 hours): Generally: Patient is sitting up in bed, nursing infant, no acute distress Fundus: Firm at U -1 Extremities: Negative Homans, no edema Discharge Plan Discharge Plan Patient Disposition: Home Provider Discharge Comment: Call with fever, chills, or bleeding vaginally more than a pad in an hour Ibuprofen 600 mg every 6 hours as needed for cramping Continue vitamin Push fluids Discharge orders & Medications Prescriptions: Continued prenat.vits,marquis,[id number] Tablet 1 tab PO DAILY RF: 0 citalopram [Celexa] 10 mg tablet 10 mg PO DAILY Qty: 30 RF: 4 Discontinued Methyl-Guard Plus 1 tab PO DAILY RF: 0 Follow up/Referrals: Ale Arguelles MD [Physician] - 6 Weeks (Please follow up with Dr. Agruelles on June 30 at 2:00pm for a 6 wk PP visit. If you have any questions/concerns or need to reschedule please call . ) Diet/Activity/Treatments Diet: Regular Activity: No intercourse Skin/Wound/Dressing Care Report to your healthcare provider any signs of infection, such as:: chills, fever, increased pain and unusual drainage Visit Report/Discharge Packet Instructions: DI for Labor and Delivery, Vaginal Stand Alone Forms: Discharge: Care Discharge Data Primary Care Provider: Theodore Ellsworth
== END 2020-05-18 17:25 | disposition home or self-care (01) | DRG 806 ==
PROVIDERS: Admitting Provider Obstetrics & Gynecology; PCP Family Medicine; Referring Provider Obstetrics & Gynecology; Visit Provider Obstetrics & Gynecology
DX: O99.284 Endocrine, nutritional and metabolic diseases complicating childbirth (principal); E72.12 Methylenetetrahydrofolate reductase deficiency; Z37.0 Single live birth; Z3A.39 39 weeks gestation of pregnancy; L42 Pityriasis rosea
CPT/HCPCS: 01967; 36415; 59050; 59400; 85014; 85018; 85025; 86850; 86900; 86901; G0379; J2590